=== PATIENT | male | born 1935 | race Hispanic/Latino ===

== ENCOUNTER 2017-06-13 08:46 | Emergency (ER) | payer MEDICARE, BC ==
[2017-06-13 09:43] LABS: BASO # 0.1 K/uL (0.0-0.2); EOS # 0.4 K/uL (0.0-0.7); EOS % 8.5 % (0.0-4.0); HEMATOCRIT 33.7 % (35.0-51.0); LYMPH % 22.8 % (20.0-40.0); MEAN CELL VOLUME 89.6 fL (80.0-94.0); MEAN CORPUSCULAR HGB CONC 33.5 g/dL (33.0-37.0); MONO # 0.5 K/uL (0.0-0.8); MONO % 10.1 % (0.0-10.0); NRBC % 0.1 % (0.0-2.0); WHITE BLOOD COUNT 4.6 K/uL (4.8-10.8)
[2017-06-13 09:51] LABS: CALCIUM 8.2 mg/dl (8.6-10.4)
--- NOTE | 2017-06-13 09:54 | C.PDOC ---
History Of Present Illness 81 y/o male sent to ER by PMD for evaluation of possible hyperkalemia. Patient states he had outpatient blodo work done yesterday, thinks the K level was 6. Patient has no physical complaints. Time Seen by Provider: 06/13/17 08:52 Chief Complaint (Nursing): Abnormal Labs History Per: Patient History/Exam Limitations: no limitations Severity: None Past Medical History Reviewed: Historical Data, Nursing Documentation, Vital Signs Vital Signs: Last Vital Signs Temp 97.6 F 06/13/17 10:59 Pulse 68 06/13/17 10:59 Resp 16 06/13/17 10:59 BP 132/70 06/13/17 10:59 Pulse Ox 99 06/13/17 12:38 - Medical History PMH: Atrial Fibrillation, HTN Family History: States: No Known Family Hx - Social History Hx Alcohol Use: Yes Hx Substance Use: No - Immunization History Hx Pneumococcal Vaccination: Yes Review Of Systems Except As Marked, All Systems Reviewed And Found Negative. Constitutional: Negative for: Fever, Chills Cardiovascular: Negative for: Chest Pain, Palpitations Respiratory: Negative for: Cough, Shortness of Breath, Wheezing Gastrointestinal: Negative for: Nausea, Vomiting, Abdominal Pain Skin: Negative for: Rash Neurological: Negative for: Headache, Dizziness Physical Exam - Physical Exam Appears: Well, Non-toxic, No Acute Distress Skin: Normal Color, Warm, Dry Head: Normacephalic Oral Mucosa: Moist Cardiovascular: Rhythm Regular Respiratory: Normal Breath Sounds, No Rales, No Rhonchi, No Wheezing Gastrointestinal/Abdominal: Normal Exam, Bowel Sounds, Soft, No Tenderness, Other (urostomy bag inferior to umbilicus) Back: Normal Inspection Extremity: Normal ROM Neurological/Psych: Oriented x3 ED Course And Treatment - Laboratory Results Result Diagrams: 06/13/17 09:35 06/13/17 09:35 ECG: Interpreted By Me, Viewed By Me ECG Rhythm: Sinus Rhythm ECG Interpretation: No Acute Changes Interpretation Of ECG: Normal axis, 1st degree AV block, no U waves, No acute ST /T wave changes. Rate From EC (bpm) O2 Sat by Pulse Oximetry: 99 (RA) Pulse Ox Interpretation: Normal Progress Note: Blood work, EKG ordered and reviewed. K level is currently 5, and patient states he has known h/o elevated Bun/Cr. He was given copies of his blood work, and instructed to follow up with PMD in 1-2 days. He understands he should return to ED if symptoms worsen. Disposition Counseled Patient/Family Regarding: Diagnosis, Need For Followup - Disposition Referrals: Sabina Munoz MD [Medical Doctor] - Disposition: HOME/ ROUTINE Disposition Time: 10:35 Condition: STABLE Additional Instructions: FOLLOW UP WITH YOUR DOCTOR IN 1-2 DAYS DRINK PLENTY OF FLUIDS RETURN TO ER IF YOU HAVE ANY CONCERNING SYMPTOMS Instructions: Chronic Kidney Disease (ED) Forms: [email or web address] (Yakut), General Discharge Instructions Print Language: WOLOF - POA Present On Arrival: None - Clinical Impression Clinical Impression: Chronic kidney disease - Scribe Statement The provider has reviewed the documentation as recorded by the Lanie Jc Provider Attestation: All medical record entries made by the Lanie were at my direction and personally dictated by me. I have reviewed the chart and agree that the record accurately reflects my personal performance of the history, physical exam, medical decision making, and the department course for this patient. I have also personally directed, reviewed, and agree with the discharge instructions and disposition.
[2017-06-13 11:00] VITALS: BP 132/70; PULSE 68; RESP 16; TEMP 97.6
[2017-06-13 12:38] VITALS: O2SAT 99
--- NOTE | 2017-06-13 20:18 | CARD ---
APPROVED REPORT EKG Measurement Heart [id number] <Conclusion> Sinus rhythm with 1st degree AV block with premature atrial complexes Otherwise normal ECG
== END 2017-06-13 11:06 | disposition home or self-care (01) ==
LOC: C.ER 08:46
DX: I12.9 Hypertensive chronic kidney disease with stage 1 through stage 4 chronic kidney disease, or unspecified chronic kidney disease (principal); N18.9 Chronic kidney disease, unspecified; I48.91 Unspecified atrial fibrillation